=== PATIENT | female | born 1995 | race Caucasian/White ===

== ENCOUNTER 2017-07-31 12:46 | Emergency (ER) | payer OTHER ==
--- NOTE | ~2017-07-31 | EKG ---
PATIENT: TRELL PARRISH UNIT #: [id number] Ventricular Rate: 79 BPM Atrial Rate: 79 BPM P-R Interval: 148 ms QRS Duration: 70 ms Q-T Interval: 362 ms QTC Calculation(Bezet): 415 ms P [place]: 72 degrees Calculated R [place]: 72 degrees Calculated T [place]: 38 degrees Diagnosis Line: Normal sinus rhythm with sinus arrhythmia Diagnosis Line: Possible Left atrial enlargement Diagnosis Line: Borderline ECG Diagnosis Line: No previous ECGs available Diagnosis Line: Confirmed by ALLA CRUZ MD ([id number]) on Diagnosis Line: 08/01/2017 10:55:02 AM INTERPRETING MD: NANCY SIDDIQI
[2017-07-31] MEDS ORDERED: BIRTH CONTROL PILL (12:47)
[2017-07-31 13:27] LABS: MICRO INDICATED? YES; URINE APPEARANCE HAZY; URINE BILIRUBIN NEG (NEG); URINE BLOOD NEG (NEG); URINE COLOR YELLOW; URINE GLUCOSE NEG (NORM); URINE KETONE TRACE (NEG); URINE LEUKOCYTE ESTERASE NEG (NEG); URINE NITRATE NEG (NEG); URINE PH 5.5 (5-8); URINE PROTEIN TRACE (NEG); URINE SOURCE CLEAN CATCH; URINE SPECIFIC GRAVITY >=1.030 (1.003-1.035); URINE UROBILINOGEN 0.2 MG/DL (NORM)
[2017-07-31 13:28] LABS: CULTURE INDICATED? YES; URINE BACTERIA 2+ (NEG); URINE GRANULAR CAST 0-2 /[HPF]; URINE HYALINE CAST 0-2 /[HPF]; URINE MUCUS PRESENT; URINE RBC 0-2 /[HPF] (0-2); URINE SQUAMOUS EPITHELIAL CELL FEW /[HPF]; URINE TRANSITIONAL EPI CELLS OCCAS /[HPF]; URINE WBC 0-2 /[HPF] (0-5)
== END 2017-07-31 14:23 | disposition home or self-care (01) ==
LOC: SED 12:46
PROVIDERS: Emergency Medicine
DX: R55 Syncope and collapse (principal); F41.9 Anxiety disorder, unspecified; R11.0 Nausea
CPT/HCPCS: 81003; 84703; 87086; 93005; 99284